=== PATIENT | male | born 1960 | race Caucasian/White ===

== ENCOUNTER 2022-05-04 14:00 | Inpatient (IN) | payer SELFPAY ==
[~2022-05-04] VITALS: Ht 180.3 cm; Wt 69.6 kg
--- NOTE | 2022-05-04 15:43 | NUR ---
PT TRANSFERRED FROM [facility]. REPORT RECEIVED BY [facility] AND EMS. PT STABLE ON ROOM AIR. POSADA IN PLACE. CALL LIGHT WITHIN REACH. WILL CONTINUE TO MONITOR.
[2022-05-04] MEDS ORDERED: ADVIL LIQUI-GE200 MG PO (16:38)
[2022-05-04 16:57] LABS: BASO % 0.6 % (0.0-2.0); EOS # 0.2 K/mm3 (0.0-0.7); GRAN # 4.5 K/mm3 (1.4-6.5); GRAN % 72.4 % (42.2-75.2); HEMATOCRIT 40.6 % (42.0-52.0); HEMOGLOBIN 13.8 g/dl (13.5-18.0); LYMPH # 0.9 K/mm3 (1.2-3.4); LYMPH % 14.7 % (20.0-51.0); MEAN CELL VOLUME 86 fl (80.0-100.0); MEAN CORPUSCULAR HEMOGLOBIN 29 pg (27-31); MEAN CORPUSCULAR HGB CONC 34 g/dl (33.0-37.0); MEAN PLATELET VOLUME 10.1 fl (7.4-10.4); MONO # 0.6 K/mm3 (0.1-0.6); MONO % 8.8 % (1.7-9.3); PLATELET COUNT 352 K/mm3 (130-400); RED BLOOD COUNT 4.71 M/mm3 (4.20-5.60); REDCELL DISTRIBUTION WIDTH-CV 13.8 % (11.5-14.5)
[2022-05-04 17:11] LABS: ALBUMIN 3.2 gm/dL (3.4-4.8); CALCIUM 10.2 mg/dL (8.4-10.2); CREATININE, serum 3.49 mg/dL (0.72-1.25); PHOSPHOROUS 3.6 mg/dL (2.3-4.7); POTASSIUM 4.3 mmol/L (3.5-4.5)
[2022-05-04 17:13] VITALS: BP 164/88; PULSE 100; TEMP 98.3
--- NOTE | 2022-05-04 18:59 | NUR ---
PT ALERT AND ORIENTED LAYING DOWN IN BED. IV FLUIDS INFUSING. PT DENIES PAIN OR DISCOMFORT. CALL LIGHT WITHIN REACH. NO FURTHER NEEDS IDENTIFIED.
[2022-05-04 19:28] VITALS: BP 139/74; PULSE 81; TEMP 98.5
[2022-05-04 23:30] VITALS: BP 129/69; PULSE 65; TEMP 98.8
[2022-05-05 03:34] VITALS: BP 123/72; PULSE 71; TEMP 98.4
[2022-05-05 06:23] LABS: BASO # 0.1 K/mm3 (0.0-0.2); BASO % 0.9 % (0.0-2.0); EOS # 0.3 K/mm3 (0.0-0.7); EOS % 4.3 % (0.0-4.0); GRAN # 3.5 K/mm3 (1.4-6.5); GRAN % 58.6 % (42.2-75.2); HEMOGLOBIN 12.2 g/dl (13.5-18.0); LYMPH # 1.5 K/mm3 (1.2-3.4); LYMPH % 24.8 % (20.0-51.0); MEAN CELL VOLUME 86 fl (80.0-100.0); MEAN CORPUSCULAR HEMOGLOBIN 29 pg (27-31); MEAN CORPUSCULAR HGB CONC 34 g/dl (33.0-37.0); MEAN PLATELET VOLUME 10.2 fl (7.4-10.4); MONO # 0.7 K/mm3 (0.1-0.6); MONO % 11.1 % (1.7-9.3); PLATELET COUNT 319 K/mm3 (130-400); RED BLOOD COUNT 4.17 M/mm3 (4.20-5.60); REDCELL DISTRIBUTION WIDTH-CV 13.8 % (11.5-14.5)
--- NOTE | 2022-05-05 06:30 | NUR ---
THE PATIENT HAD AN UNEVENTFUL NIGHT. DENIES PAIN. HAS BEEN FOLLOWING INSTRUCTIONS TO INCREASE INTAKE TO 3L/DAY. THE PATIENT REMAINS ON IV FLUIDS. NO OTHER CONCERNS.
[2022-05-05 06:52] LABS: ALBUMIN 2.7 gm/dL (3.4-4.8); CALCIUM 9.1 mg/dL (8.4-10.2); CREATININE, serum 0.86 mg/dL (0.72-1.25); PHOSPHOROUS 2.3 mg/dL (2.3-4.7); POTASSIUM 3.7 mmol/L (3.5-4.5)
[2022-05-05 08:13] VITALS: BP 103/72; PULSE 74; TEMP 97.9
--- NOTE | 2022-05-05 09:11 | NUR ---
PT ALERT AND ORIENTED WITH VITALS STABLE ON ROOM AIR. PT DENIES PAIN OR DISCOMFORT. PT REPORTS HE IS FEELING BETTER. IV FLUIDS INFUSING. CALL LIGHT WITHIN REACH. NO FURTHER NEEDS AT THE MOMENT.
--- NOTE | 2022-05-05 09:57 | NUR ---
Initial visit; Patient transferred here from [place] with additional health issues. Patient quite worried and receptive to Monitor Tech offering prayer of discernment concerning his health issues along with rapid and thorough recovery. Monitor Tech will follow up.
[2022-05-05 12:06] VITALS: BP 168/89; PULSE 66; TEMP 97.8
--- NOTE | 2022-05-05 13:35 | NUR ---
PT COMPLAINING OF BACK PAIN THAT IS GETTING WORSE AND IRRADIATING TO THE GROIN. CALLED PROVIDER BUT DID NOT GET A RESPONSE, WILL ATTEMPT AT A LATER TIME. TYLENOL GIVEN WITH NO RELIEF AT THE MOMENT.
--- NOTE | 2022-05-05 15:51 | NUR ---
Forklift Material Handler met with patient to discuss discharge planning. Patient lives alone in [place], [place] and sees ANUM Monet for primary care. Patient obtains medications from RX in [place] and does not use any DME. 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 Patient would like to complete DPOA-HC while here. MACKENZIE assisted patient in completing form. Patient chose to designate his niece, David. MACKENZIE and LORELEI Cox provided witness signature. MACKENZIE placed copy in chart then provided original and copies to patient. Patient plans to return home at time of discharge. Discharge Plan: Home
[2022-05-05 15:53] VITALS: BP 151/94; PULSE 82; TEMP 98.3
--- NOTE | 2022-05-05 17:51 | NUR ---
PT ALERT AND ORIENTED WITH VITALS STABLE ON ROOM AIR. PT COMPLAINS OF PUMP BEEPING ALL NIGHT, PHYSICIAN AWARE. PT POSADA IN. CALL LIGHT WITHIN REACH. NO FURTHER NEEDS AT THE MOMENT.
[2022-05-05 19:37] VITALS: BP 146/81; PULSE 104; TEMP 98.6
--- NOTE | 2022-05-05 19:58 | NUR ---
PT IV HAS FALLEN OUT. CONTACTED DR. WILSON WHO STATES WE DO NOT NEED TO REPLACE THE PATIENT WILL DISCHARGE TOMORROW. NO OTHER CONCERNS.
[2022-05-05 23:23] VITALS: BP 116/68; PULSE 82; TEMP 98.7
--- NOTE | 2022-05-06 03:01 | NUR ---
PT SLEEPING, HAS HAD NO COMPLAINT THROUGH THE NIGHT.
[2022-05-06 03:15] VITALS: BP 110/60; PULSE 81; TEMP 98.4
[2022-05-06 06:25] LABS: BASO # 0.1 K/mm3 (0.0-0.2); BASO % 0.9 % (0.0-2.0); EOS # 0.3 K/mm3 (0.0-0.7); EOS % 3.8 % (0.0-4.0); GRAN # 5.2 K/mm3 (1.4-6.5); GRAN % 65.2 % (42.2-75.2); HEMATOCRIT 38.5 % (42.0-52.0); HEMOGLOBIN 13.2 g/dl (13.5-18.0); LYMPH # 1.5 K/mm3 (1.2-3.4); LYMPH % 19.1 % (20.0-51.0); MEAN CELL VOLUME 87 fl (80.0-100.0); MEAN CORPUSCULAR HEMOGLOBIN 30 pg (27-31); MEAN CORPUSCULAR HGB CONC 34 g/dl (33.0-37.0); MEAN PLATELET VOLUME 10.3 fl (7.4-10.4); MONO # 0.8 K/mm3 (0.1-0.6); MONO % 10.6 % (1.7-9.3); PLATELET COUNT 350 K/mm3 (130-400); RED BLOOD COUNT 4.43 M/mm3 (4.20-5.60); REDCELL DISTRIBUTION WIDTH-CV 13.2 % (11.5-14.5)
[2022-05-06 06:33] LABS: ALBUMIN 2.8 gm/dL (3.4-4.8); CALCIUM 8.7 mg/dL (8.4-10.2); CREATININE, serum 0.7 mg/dL (0.72-1.25); POTASSIUM 3.8 mmol/L (3.5-4.5)
[2022-05-06 07:25] VITALS: BP 125/82; PULSE 90; TEMP 98.6
--- NOTE | 2022-05-06 07:52 | NUR ---
BEDSIDE REPORT RECEIVED FROM LORELEI LAMBERT. PT RESTING IN BED, EATING BREAKFAST AT THIS TIME. PT DENIES PAIN. CALL LIGHT IN REACH.
[2022-05-06] MEDS ORDERED: FLOMAX 0.40.4 MG/CAP PO (10:14)
[2022-05-06 11:37] VITALS: BP 121/74; PULSE 71; TEMP 97.6
[2022-05-06 17:10] VITALS: BP 132/88; PULSE 85; TEMP 97.7
--- NOTE | 2022-05-06 18:20 | NUR ---
POSADA CATHETER LEFT IN PLACE PER DR BURTON. PT EDUCATED ON CATHETER CARE; INSTRUCTED PT TO ALWAYS WASH HANDS BEFORE AND AFTER CHANGING FROM LARGE DRAINAGE BAG TO LEG BAG, TO WIPE TUBING W/ ALCOHOL, PERFORM REGULAR HENRY CARE, EMPTY BAG REGULARLY ALSO ADVISED PT TO MONITOR OUTPUT AND CONTACT PCP OR DR BURTON'S OFFICE IF OUTPUT DECREASED OR IF HE HAD ANY PROBLEMS W/ POSADA. PT GIVEN EXTRA LEG BAG AND EXTRA LARGE DRAINAGE BAG, ALCOHOL WIPES AND POSADA CLEANING WIPES. PT INSTRUCTED TO MUD MILL TENDER FLOMAX PRESCRIPTION AND TAKE DIRECTED. PT ALSO GIVEN D/C PACKET W/ POSADA CARE PRINT OUT AND FOLLOW UP APPTS W/ JONO W/ DATE, TIME, PLACE. PT VERBALIZED UNDERSTANDING OF ALL INSTRUCTIONS.
== END 2022-05-06 19:16 | disposition home or self-care (01) | DRG 684 ==
LOC: MEDICAL 14:00
PROVIDERS: Registered Nurse; ADMIT Internal Medicine Nephrology
DX: N17.9 Acute kidney failure, unspecified (principal); N32.0 Bladder-neck obstruction; J30.9 Allergic rhinitis, unspecified; I10 Essential (primary) hypertension; K40.90 Unilateral inguinal hernia, without obstruction or gangrene, not specified as recurrent; F10.90 Alcohol use, unspecified, uncomplicated; Z53.29 Procedure and treatment not carried out because of patient's decision for other reasons; G89.29 Other chronic pain; Z79.1 Long term (current) use of non-steroidal anti-inflammatories (NSAID); Z87.891 Personal history of nicotine dependence; Z88.8 Allergy status to other drugs, medicaments and biological substances